=== PATIENT | male | born 1975 | race Hispanic/Latino ===

== ENCOUNTER 2024-09-10 10:06 | Emergency (ER) | payer SELFPAY ==
[~2024-09-10] VITALS: Ht 165.1 cm; Wt 86.2 kg
[2024-09-10] MEDS: TETRACAINE HCL 0.5% 4 ML OPHTH SOLN OD ONE (10:53)
[2024-09-10] MEDS: ERYTHROMYCIN BASE 0.5% OPHTH OINT 1 GM TUBE ONE (10:54)
[2024-09-10] MEDS: FLUORESCEIN SODIUM 1 STRIP STRIP ONE (10:54)
[2024-09-10] MEDS: FLUORESCEIN SODIUM 1 STRIP STRIP OD ONE (10:54)
[2024-09-10] MEDS: TETRACAINE HCL 0.5% 4 ML OPHTH SOLN ONE (10:54)
[2024-09-10] MEDS: ERYTHROMYCIN BASE 0.5% OPHTH OINT 1 GM TUBE OD ONE (10:54)
--- NOTE | 2024-09-10 10:54 | NUR ---
APPLIED EYE PATCH TO R EYE PER VERBAL PA ORDER.
[2024-09-10] MEDS ORDERED: TOBR5DRO46 OP (11:11)
--- NOTE | 2024-09-10 11:13 | ERN ---
General Chief Complaint: Eye Problems Stated Complaint: NAIL IN RIGHT EYE Time Seen by MD: 10:16 Time Seen by Midlevel: 10:16 Source: patient History of Present Illness Initial Comments The patient is a 49-year-old male with no significant past medical history presenting to the emergency department for evaluation of right eye pain. 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 He reports some mild pain and redness to the area. Patient states he was up-to-date with his tetanus vaccination. Allergies: Coded Allergies: No Known Drug Allergies (Unverified Allergy, Unknown, 09/10/24) Home Meds Active Scripts Tobramycin/Dexamethasone (Tobradex St Eye Drops) 0.3 %-0.05 % Drops.susp, 1 DROP OP QID, #5 ML 0 Refills Prov:JM HERNANDEZ 09/10/24 Past Medical History Past Medical History: No Pertinent History Past Surgical History: None ROS Dictation CONSTITUTIONAL: Negative except for HPI HEAD/FACE: Negative except for HPI EENT: Negative except for HPI RESPIRATORY: Negative except for HPI GASTROINTESTINAL/ABDOMINAL: Negative except for HPI GENITOURINARY: Negative except for HPI MUSCULOSKELETAL: Negative except for HPI INTEGUMENTARY: Negative except for HPI NEUROLOGICAL/PSYCH: Negative except for HPI HEMATOLOGIC/LYMPHATIC: Negative except for HPI All Systems Negative, Except as noted above. 13 point review of systems assessed and all negative except for above. Physical Exam Physical Exam Dictation Vital Signs reviewed General Appearance: Alert, oriented x 3, no acute distress, well developed, nourished. Head and Face: non-traumatic. Eyes: PERRL, pink conjunctivas, eyelid no trauma, anterior chamber with arcus senilis. Ears: Pinnas intact and no signs of trauma or erythema ear canals clear and no discharge TM no erythema Nose: No discharge, no bleeding. Oropharynx: Mouth normal, tongue pink, pharynx clear,no erythema, tonsils no exudates, no abscesses noted, mucous membrane moist Neck: Supple, non-tender, no thyromegaly, no masses, no JVD, no bruits Breast:Deferred Chest:No tenderness, no crepitus, no paradoxical movement, no retractions Lungs:Clear, well-ventilated, symmetric, no rales, no wheezing, no rhonchi, no stridor, good breath sounds bilaterally Heart: Regular rate, regular rhythm, no murmur, no gallops Vascular: no peripheral edema, Abdomen: Soft, positive bowel sounds, nondistended, no guarding, nontender, no rebound, no masses no hepatomegaly, no splenomegaly, no Ashraf's sign, no hernias. Rectal: Deferred Genital: Deferred Neurological: Normal speech, motor function intact, sensory function intact Musculoskeletal: Neck nontender, full range of motion, back nontender, full range of motion, Extremities: nontender, full range of motion Skin: Color pink, dry, no turgor, no rash, no lacerations, no abrasions, no contusions. Lymphatic: Deferred MDM MDM: The patient is a 49-year-old male with no significant past medical history presenting to the emergency department for evaluation of right eye pain. 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 He reports some mild pain and redness to the area. Patient states he was up-to-date with his tetanus vaccination. On physical examination the patient has mild redness to his right eye. Tetracaine was applied in the eye was stained. Wood's lamp was used which revealed a small corneal abrasion. Patient was given erythromycin in the emergency department but will be discharged home with a prescription for tobramycin. Differential diagnosis: Corneal abrasion, foreign body, There are no social concerns with this patient. Prescription drug management Prescriptions will include: TobraDex Medical management and examination interpretation discussions were had by me with other qualified healthcare professionals as indicated for the patient's care. ED Course Orders Procedure Category Date Status Time Fluorescein Sodium PHA 09/10/24 Complete (Xatmm-D-Htgtz At) 10:31 Tetracaine Hcl PHA 4 Complete (Pontocaine 0.5% 10:31 Erythrocin 0.5% Ophth PHA 09/10/24 Complete Oint (Erythrocin 0 10:37 Tetracaine Hcl PHA 09/10/24 Complete (Pontocaine 0.5% 11:00 Erythrocin 0.5% Ophth PHA 09/10/24 Complete Oint (Erythrocin 0 11:00 Fluorescein Sodium PHA 09/10/24 Complete (Jnned-L-Kjgvv At) 11:00 Current Medications Medications (Trade) Dose Ordered Sig/Amie Route PRN Reason Start Time Stop Time Status Last Admin Dose Admin Erythromycin (Erythrocin 0.5% Ophth Oint) 1 appl ONCE ONCE OD 09/10/24 11:00 09/10/24 11:01 DC 09/10/24 10:54 Erythromycin (Erythrocin 0.5% Ophth Oint) 1 appl STK-MED ONCE .ROUTE 09/10/24 10:37 09/10/24 10:37 DC Fluorescein Sodium (Stxok-J-Uymxz At) 1 strip ONCE ONCE OD 09/10/24 11:00 09/10/24 11:01 DC 09/10/24 10:54 Fluorescein Sodium (Yripb-H-Xzbjb At) 1 strip STK-MED ONCE .ROUTE 09/10/24 10:31 09/10/24 10:32 DC Tetracaine HCl (Pontocaine 0.5% Ophth Soln) 2 drop ONCE ONCE OD 09/10/24 11:00 09/10/24 11:01 DC 09/10/24 10:53 Tetracaine HCl (Pontocaine 0.5% Ophth Soln) 20 drop STK-MED ONCE .ROUTE 09/10/24 10:31 09/10/24 10:32 DC Vital Signs Date Time Temp Pulse Resp B/P (MAP) Pulse Ox O2 Delivery O2 Flow Rate FiO2 09/10/24 10:28 98.6 87 16 152/89 99 Room Air 0 DX & DISP Disposition: Discharge Departure Impression: Primary Impression: Right corneal abrasion Condition: Stable Scripts Tobramycin/Dexamethasone (Tobradex St Eye Drops) 0.3 %-0.05 % Drops.susp 1 DROP OP QID, #5 ML 0 Refills Prov: JM HERNANDEZ 09/10/24 I have reviewed the case, and I agree with, Diagnosis and Plan I performed the substantive portion of the visit. I have reviewed and personally made and approve the management plan that is documented in the note by myself or the JUANIS. I acknowledge for responsibility for the patient's management plan. JM HERNANDEZ Sep 10, 2024 11:12
[2024-09-10 11:15] VITALS: BP 136/75; PULSE 80; RESP 16; TEMP 98.6; O2SAT 99
== END 2024-09-10 11:14 | disposition home or self-care (01) ==
LOC: EDH 10:06
DX: S05.01XA Injury of conjunctiva and corneal abrasion without foreign body, right eye, initial encounter (principal); W44.8XXA Other foreign body entering into or through a natural orifice, initial encounter; Y93.89 Activity, other specified; Y92.89 Other specified places as the place of occurrence of the external cause; Y99.8 Other external cause status
CPT/HCPCS: 99283